=== PATIENT | female | born 1990 | race Hispanic/Latino ===

== ENCOUNTER 2019-09-30 07:53 | Outpatient (CLI) | payer BC ==
--- NOTE | 2019-09-30 09:41 | ULT ---
PELVIC SONOGRAM TRANSABDOMINAL IMAGING WITH DUPLEX EVALUATION: HISTORY: Pelvic pain. Inguinal adenopathy. FINDINGS: Urinary bladder has a normal appearance. Uterus has a homogeneous echotexture and is 6.8 cm. Endome trium is 0.6 cm. No free fluid. Each ovary has a normal appearance with good color and spectral Doppler flow. At the left groin, a lymph node measuring up to 1.5 cm length is predominantly made up of a fatty hil um. IMPRESSION: 1. Normal sonographic appearance to pelvis. 2. Normal left inguinal lymph node in region of palpable concern. POS: [facility]
== END 2019-09-30 07:54 | disposition home or self-care (01) ==
LOC: BICULT 07:53
PROVIDERS: ATTEND Nurse Practitioner Family
DX: R59.0 Localized enlarged lymph nodes (principal)
CPT/HCPCS: 76856; 93976